=== PATIENT | female | born 1995 | race Caucasian/White ===

== ENCOUNTER 2022-09-01 11:49 | Emergency (ER) | payer SELFPAY ==
[~2022-09-01] VITALS: Ht 149.9 cm; Wt 68.0 kg
[2022-09-01 11:54] VITALS: BP 118/97
== END 2022-09-01 13:15 | disposition left against medical advice (07) ==
LOC: ER 11:49
DX: L08.9 Local infection of the skin and subcutaneous tissue, unspecified (principal); Z53.21 Procedure and treatment not carried out due to patient leaving prior to being seen by health care provider
CPT/HCPCS: 99281